=== PATIENT | female | born 1960 | race Caucasian/White ===

== ENCOUNTER → 2017-10-20 | Outpatient (CLI) | payer OTHER ==
[2015-05-02 22:01] VITALS: BP 139/62
[~2017-10-20] MED LIST: AMBIEN10 MG PO; AMOXICILLIN875 MG PO; CETIRIZINE PO; FLEXERIL PO; NATURE-THROI16.25 MG PO; OCUVITE1 TA1 PO; SYSTANE 0.4%-0.1 SOL OP; ULTRAM 50MG TAB50 MG PO; VITAMIN D1000 IU PO; [UNRECOGNIZED DRUG - OTHER] PO
[2017-10-20 16:20] LABS: HEMATOCRIT 40.3 % (37.0-47.0); HEMOGLOBIN 12.9 g/dL (12.5-16.0); LYMPH# 2.8 (1.50-4.00); MEAN CELL VOLUME 88 fl (78-100); MEAN CORPUSCULAR HEMOGLOBIN 28 pg (27-31); MEAN CORPUSCULAR HGB CONC 32 g/dL (33-37); MEAN PLATELET VOLUME 9.2 fl (7.4-10.4); MONO # 0.8 (0.20-0.80); NEU # 8.8 (1.40-6.50); PLATELET COUNT 355 K/mm3 (130-400); RED CELL DISTRIBUTION WIDTH 14.1 % (11.5-14.5); WHITE BLOOD COUNT 12.4 K/mm3 (4.8-10.8)
[2017-10-20 16:33] LABS: BUN/CREATININE RATIO 20.4 (6.0-26.0); CALCIUM 9.2 mg/dL (8.4-10.2)
[2017-10-20 16:37] LABS: D-DIMER 0.52 mg/L FEU (0.15-0.50)
== END ==
LOC: RAD 15:41
PROVIDERS: Family Medicine
DX: R05 Cough (principal); R06.82 Tachypnea, not elsewhere classified; R49.0 Dysphonia; E03.9 Hypothyroidism, unspecified; R53.81 Other malaise; Z80.1 Family history of malignant neoplasm of trachea, bronchus and lung
CPT/HCPCS: Q9967

== ENCOUNTER → 2018-06-29 | Outpatient (CLI) | payer OTHER ==
[2015-05-02 22:01] VITALS: BP 139/62
[2018-06-29 07:24] LABS: ALBUMIN 3.6 g/dL (3.5-5.0); BUN/CREATININE RATIO 13.9 (6.0-26.0); CALCIUM 8.8 mg/dL (8.4-10.2); POTASSIUM 3.6 mmol/L (3.6-5.0); TOTAL BILIRUBIN 0.4 mg/dL (0.2-1.3); TOTAL PROTEIN 6.9 g/dL (6.3-8.2)
== END ==
LOC: LAB 06:24
PROVIDERS: Family Medicine
DX: Z00.00 Encounter for general adult medical examination without abnormal findings (principal); Z13.1 Encounter for screening for diabetes mellitus; Z12.31 Encounter for screening mammogram for malignant neoplasm of breast; Z13.6 Encounter for screening for cardiovascular disorders; G47.00 Insomnia, unspecified; M47.892 Other spondylosis, cervical region; K21.9 Gastro-esophageal reflux disease without esophagitis; E03.9 Hypothyroidism, unspecified

== ENCOUNTER → 2019-01-22 | Outpatient (CLI) | payer BC, OTHER ==
[2015-05-02 22:01] VITALS: BP 139/62
== END ==
LOC: LAB 16:44
DX: A04.8 Other specified bacterial intestinal infections (principal)

== ENCOUNTER → 2019-08-17 | Outpatient (CLI) | payer BC, OTHER ==
[2015-05-02 22:01] VITALS: BP 139/62
[2019-08-17 18:42] LABS: URINE APPEARANCE HAZY; URINE BILIRUBIN NEGATIVE (NEGATIVE); URINE BLOOD TRACE (NEGATIVE); URINE COLOR YELLOW; URINE GLUCOSE NEGATIVE (NEGATIVE); URINE KETONE NEGATIVE (NEGATIVE); URINE LEUKOCYTE ESTERASE 1+ (NEGATIVE); URINE NITRATE NEGATIVE (NEGATIVE); URINE PROTEIN(semi-quant) TRACE mg/dL (NEGATIVE); URINE UROBILINOGEN NORMAL (NORMAL)
== END ==
LOC: LAB 17:55
PROVIDERS: Family Medicine
DX: N39.0 Urinary tract infection, site not specified (principal)

== ENCOUNTER → 2020-06-28 | Outpatient (CLI) | payer BC, OTHER ==
[2015-05-02 22:01] VITALS: BP 139/62
== END ==
LOC: MAMMO 15:58
DX: Z12.31 Encounter for screening mammogram for malignant neoplasm of breast (principal)

== ENCOUNTER → 2020-10-20 | Outpatient (CLI) | payer BC, OTHER ==
[2015-05-02 22:01] VITALS: BP 139/62
== END ==
LOC: RAD 09:59
DX: D17.21 Benign lipomatous neoplasm of skin and subcutaneous tissue of right arm (principal)

== ENCOUNTER → 2021-03-28 | Outpatient (CLI) | payer BC, OTHER ==
[2015-05-02 22:01] VITALS: BP 139/62
[2021-03-28 13:31] LABS: URINE APPEARANCE CLOUDY; URINE BILIRUBIN NEGATIVE (NEGATIVE); URINE BLOOD 250 ery/uL (NEGATIVE); URINE COLOR YELLOW; URINE GLUCOSE NEGATIVE (NEGATIVE); URINE KETONE NEGATIVE (NEGATIVE); URINE LEUKOCYTE ESTERASE 2+ (NEGATIVE); URINE NITRATE NEGATIVE (NEGATIVE); URINE PROTEIN(semi-quant) 1+ mg/dL (NEGATIVE); URINE UROBILINOGEN NORMAL (NORMAL)
[2021-03-28 13:32] LABS: URINE WBC >50 /hpf (0-3)
== END ==
LOC: LAB 12:36
PROVIDERS: Family Medicine
DX: R30.9 Painful micturition, unspecified (principal)

== ENCOUNTER → 2022-01-24 | Outpatient (CLI) | payer BC | LOC: MAMMO 08:03 | DX: Z12.31 Encounter for screening mammogram for malignant neoplasm of breast (principal) ==

== ENCOUNTER 2022-04-10 20:34 | Emergency (ER) | payer BC ==
[~2022-04-10] VITALS: Ht 165.1 cm; Wt 112.3 kg
[2022-04-10 23:52] VITALS: BP 162/67
[2022-04-10] MEDS ORDERED: SYNTHROID112 MCG PO (23:58)
[2022-04-10] MEDS ORDERED: CALCIUM500 M1 PO (23:58)
[2022-04-10] MEDS ORDERED: VITAMIN D3250 MC2 PO (23:58)
[2022-04-10] MEDS ORDERED: AMBIEN10 MG PO (23:59)
[2022-04-10] MEDS ORDERED: PROTONIX20 M1 PO (23:59)
[2022-04-11 00:29] LABS: BASO # 0.03 K/mm3 (0.02-0.10); EOS # 0.42 K/mm3 (0.04-0.40); EOS % 2.4 % (1.0-5.0); HEMATOCRIT 40.2 % (37.0-47.0); LYMPH# 2.79 K/mm3 (1.50-4.00); MEAN CELL VOLUME 90 fl (78-100); MEAN CORPUSCULAR HEMOGLOBIN 29 pg (27-31); MEAN CORPUSCULAR HGB CONC 32 g/dL (33-37); MEAN PLATELET VOLUME 8.8 fl (7.4-10.4); MONO # 0.88 K/mm3 (0.20-0.80); NEU # 13.23 K/mm3 (1.40-6.50); PLATELET COUNT 377 K/mm3 (130-400); RED BLOOD COUNT 4.46 M/mm3 (4.10-5.30); RED CELL DISTRIBUTION WIDTH 14.3 % (11.5-14.5); WHITE BLOOD COUNT 17.4 K/mm3 (4.8-10.8)
[2022-04-11 00:36] LABS: ALBUMIN 4.1 g/dL (3.4-4.8); POTASSIUM 4.2 mmol/L (3.5-5.1)
[2022-04-11 00:37] LABS: CALCIUM 9.8 mg/dL (8.3-10.5)
[2022-04-11 00:39] LABS: TOTAL PROTEIN 7.8 g/dL (6.2-8.1)
[2022-04-11 00:42] LABS: URINE APPEARANCE HAZY; URINE BILIRUBIN NEGATIVE (NEGATIVE); URINE BLOOD TRACE (NEGATIVE); URINE COLOR YELLOW; URINE GLUCOSE NEGATIVE (NEGATIVE); URINE KETONE NEGATIVE (NEGATIVE); URINE LEUKOCYTE ESTERASE 2+ (NEGATIVE); URINE NITRATE NEGATIVE (NEGATIVE); URINE PROTEIN(semi-quant) TRACE (NEGATIVE); URINE UROBILINOGEN NORMAL (NORMAL)
[2022-04-11 00:43] LABS: URINE MUCUS PRESENT (NOT PRESENT)
[2022-04-11 01:03] LABS: TOTAL BILIRUBIN 0.5 mg/dL (0.2-1.2)
[2022-04-11 01:36] LABS: ERYTHROCYTE SEDIMENTATION RATE 38 mm/hr (0-30)
[2022-04-11] MEDS ORDERED: AMOXICILLIN AND1 TA2 PO (01:37)
[2022-04-11] MEDS ORDERED: PREDNISONE20 MG PO (01:37)
== END 2022-04-11 01:42 | disposition home or self-care (01) ==
LOC: ED 20:34
PROVIDERS: Physician Assistant
DX: K04.7 Periapical abscess without sinus (principal); N39.0 Urinary tract infection, site not specified; M25.50 Pain in unspecified joint
CPT/HCPCS: J0696; J1885

== ENCOUNTER → 2022-04-22 | Outpatient (CLI) | payer BC ==
[~2022-04-22] MED LIST changes: +AMOXICILLIN AND1 TA2 PO; +CALCIUM500 M1 PO; +PREDNISONE20 MG PO; +PROTONIX20 M1 PO; +SYNTHROID112 MCG PO; +VITAMIN D3250 MC2 PO
[2022-04-22 18:58] LABS: BASO # 0.03 K/mm3 (0.02-0.10); EOS # 0.34 K/mm3 (0.04-0.40); EOS % 2.9 % (1.0-5.0); HEMATOCRIT 39.4 % (37.0-47.0); HEMOGLOBIN 12.6 g/dL (12.5-16.0); LYMPH# 4.07 K/mm3 (1.50-4.00); MEAN CELL VOLUME 91 fl (78-100); MEAN CORPUSCULAR HEMOGLOBIN 29 pg (27-31); MEAN CORPUSCULAR HGB CONC 32 g/dL (33-37); MEAN PLATELET VOLUME 9.1 fl (7.4-10.4); MONO # 0.75 K/mm3 (0.20-0.80); NEU # 6.33 K/mm3 (1.40-6.50); PLATELET COUNT 309 K/mm3 (130-400); RED BLOOD COUNT 4.31 M/mm3 (4.10-5.30); RED CELL DISTRIBUTION WIDTH 14.4 % (11.5-14.5); WHITE BLOOD COUNT 11.6 K/mm3 (4.8-10.8)
[2022-04-22 20:18] LABS: ERYTHROCYTE SEDIMENTATION RATE 67 mm/hr (0-30)
== END ==
LOC: LAB 04-13 01:38
PROVIDERS: Nurse Practitioner Family
DX: K04.7 Periapical abscess without sinus (principal)

== ENCOUNTER → 2022-04-26 | Outpatient (CLI) | payer BC ==
[2022-04-30 17:44] LABS: COMPLEMENT C3 205 mg/dL (83-193); COMPLEMENT-C4 36 mg/dL (15-57)
== END ==
LOC: LAB 17:47
PROVIDERS: Nurse Practitioner Family
DX: R70.0 Elevated erythrocyte sedimentation rate (principal); R79.82 Elevated C-reactive protein (CRP); M25.50 Pain in unspecified joint

== ENCOUNTER → 2022-05-17 | Outpatient (CLI) | payer BC | LOC: LAB 17:50 | DX: U07.1 COVID-19 (principal) ==

== ENCOUNTER → 2023-10-28 | Outpatient (CLI) | payer BC | LOC: LAB 16:10 | DX: U07.1 COVID-19 (principal) ==

== ENCOUNTER → 2024-09-17 | Outpatient (CLI) | payer BC ==
[~2024-09-17] MED LIST changes: +Gadoterate 20 ML VIAL IV ONE
[2024-09-17 09:36] LABS: BASO # 0.03 K/mm3 (0.02-0.10); EOS # 0.34 K/mm3 (0.04-0.40); EOS % 4.4 % (1.0-5.0); LYMPH# 2.18 K/mm3 (1.50-4.00); MEAN CELL VOLUME 82 fl (78-100); MEAN CORPUSCULAR HEMOGLOBIN 26 pg (27-31); MEAN CORPUSCULAR HGB CONC 32 g/dL (33-37); NEU # 4.64 K/mm3 (1.40-6.50); PLATELET COUNT 339 K/mm3 (130-400); RED BLOOD COUNT 4.62 M/mm3 (4.10-5.30); RED CELL DISTRIBUTION WIDTH 15.3 % (11.5-14.5); WHITE BLOOD COUNT 7.7 K/mm3 (4.8-10.8)
[2024-09-17 09:40] LABS: ALBUMIN 3.9 g/dL (3.4-4.8)
[2024-09-17 09:41] LABS: CALCIUM 9.2 mg/dL (8.3-10.5)
[2024-09-17 09:43] LABS: TOTAL PROTEIN 6.9 g/dL (6.2-8.1)
[2024-09-17 09:45] LABS: TOTAL BILIRUBIN 0.2 mg/dL (0.2-1.2)
[2024-09-17 09:49] LABS: MAGNESIUM 1.85 mg/dL (1.60-2.60)
[2024-09-17 10:10] LABS: URINE APPEARANCE CLOUDY (CLEAR); URINE COLOR YELLOW (YELLOW)
[2024-09-17 10:11] LABS: PH-URINE 7.5 (5.0 - 8.0); URINE BILIRUBIN NEGATIVE (NEGATIVE); URINE BLOOD NEGATIVE (NEGATIVE); URINE GLUCOSE NEGATIVE (NEGATIVE); URINE KETONE NEGATIVE (NEGATIVE); URINE LEUKOCYTE ESTERASE 2+ (NEGATIVE); URINE NITRATE NEGATIVE (NEGATIVE); URINE PROTEIN(semi-quant) NEGATIVE (NEGATIVE)
[2024-09-17 23:01] LABS: CREATININE OTHER SOURCE 85 mg/dL (63-166)
[2024-09-17 23:10] LABS: PTH,INTACT 98.3 pg/mL (6.6-88.9)
== END ==
LOC: RAD 08:14 → LAB 08:14 → RAD 08:15
PROVIDERS: Internal Medicine
DX: Z00.00 Encounter for general adult medical examination without abnormal findings (principal); R90.82 White matter disease, unspecified; Z82.49 Family history of ischemic heart disease and other diseases of the circulatory system
CPT/HCPCS: A9575

== ENCOUNTER → 2024-10-01 | Outpatient (CLI) | payer BC ==
[~2024-10-01] MED LIST changes: -Gadoterate 20 ML VIAL IV ONE
== END ==
LOC: CARDREHAB 09:08
DX: G47.19 Other hypersomnia (principal)
CPT/HCPCS: G0399

== ENCOUNTER → 2024-12-09 | Outpatient (REF) | payer BC | LOC: LAB 17:53 | DX: J01.90 Acute sinusitis, unspecified (principal) ==